=== PATIENT | female | born 1955 | race Caucasian/White ===

== ENCOUNTER 2024-04-30 14:33 | Observation (INO) | payer MEDICARE ==
[~2024-04-30] VITALS: Ht 172.7 cm; Wt 140.4 kg
[2024-04-30] MEDS ORDERED: ASPIRIN 81 MG/TAB PO ONE (14:45)
[2024-04-30] MEDS ORDERED: NITROGLYCERIN 0.4 MG/TAB SL ONE (14:45)
--- NOTE | 2024-04-30 14:50 | NUR ---
PT TO ROOM 1 IN NO DISTRESS.
[2024-04-30 15:05] LABS: BASO% 0.3 % (0-3); EOS% 1.6 % (0-8); HEMATOCRIT 46.7 % (37.0-47.0); HEMOGLOBIN 15.2 g/dl (12.0-16.0); IMMATURE GRANULOCYTES 0.3 % (0.0-5.0); LYMPH% 38.8 % (15-41); MEAN CORPUSCULAR HGB 29.6 pG CALC (26.0-32.0); MEAN CORPUSCULAR HGB CONC 32.5 g/dL CAL (32.0-36.0); MONO% 14.9 % (2-13); NEUT# 2.99 thou/uL (2.00-7.15); NEUT% 44.1 % (42-76); RED BLOOD COUNT 5.13 mill/uL (4.20-5.60); RED CELL DISTRI WIDTH 15.5 % (11.5-15.5)
[2024-04-30 15:19] LABS: ALBUMIN 4.3 g/dL (3.2-5.0); ALKALINE PHOSPHATASE 67 u/l (38-126); ANION GAP 12 (6-22 (CALC)); BILIRUBIN, TOTAL 0.7 mg/dL (0.02-1.3); BUN 13 mg/dL (8-23); BUN/CREATININE RATIO 16 (12-20 (CALC)); CARBON DIOXIDE 29 mmol/l (22-30); CHLORIDE 104 mmol/l (95-108); CREATININE 0.8 mg/dL (0.5-1.0); ESTIMATED GFR 80 ML/MIN (>=90 (CALC)); LIPASE 87 u/l (23-300); POTASSIUM 4.1 mmol/l (3.5-5.1); SGOT/AST 32 u/l (9-36); SODIUM 141 mmol/l (137-146); TOTAL PROTEIN 7.4 g/dL (6.3-8.2)
--- NOTE | 2024-04-30 16:14 | NUR ---
AMBULATING TO BATHROOM WITH STEADY GAIT, URINE SPECIMEN RECEIVED. BACK TO ROOM
[2024-04-30 16:23] LABS: URINE BILIRUBIN - DIPSTICK Negative (NEGATIVE); URINE BLOOD DIPSTICK Small (NEGATIVE); URINE GLUCOSE - DIPSTICK Negative (NEGATIVE); URINE KETONE Negative (NEGATIVE); URINE LEUK ESTERASE Negative (NEGATIVE); URINE NITRITE - DIPSTICK Negative (Negative); URINE PH 5.5 (4.5-8.0); URINE PROTEIN - DIPSTICK Negative (NEG-TRACE); URINE SPECIFIC GRAVITY 1.015; URINE UROBILINOGEN - DIPSTICK 0.2 E.U./dL (0.2)
[2024-04-30 16:24] LABS: URINE COLOR Yellow
[2024-04-30 16:31] LABS: URINE BACTERIA FEW hpf; URINE SQUAMOUS EPITHELIAL CELL FEW EPI/hpf (0-FEW)
--- NOTE | 2024-04-30 18:26 | NUR ---
D/C instructions given with verbalization of understanding. Pt. discharged home in stable condition.
[2024-04-30] MEDS ORDERED: LEVOTHYROXIN125 MCG PO (18:54)
[2024-04-30] MEDS ORDERED: COZAAR25 MG PO (18:55)
--- NOTE | 2024-04-30 18:57 | NUR ---
REPORT RECEIVED FROM GUSTABO VILLANUEVA AND RUDY GODINEZ AT THIS TIME. CARE RESUMED BY THIS NURSE FOR TRANSPORT TO MED SURG. PREVIOUS SHIFT CALLED REPORT TO MED SURG.
[2024-04-30] MEDS ORDERED: NEXIUM40 M1 PO (18:58)
--- NOTE | 2024-04-30 19:05 | NUR ---
REPORT GIVEN TO GUSTABO CASTORENA ON MED SURG AND PT TO BE TRANSPORTED TO MED SURG RM 280. CALL LIGHT WITHIN REACH AND PT HAS NO NEEDS OR CONCERNS.
[2024-04-30 19:46] VITALS: BP 172/80
[2024-04-30] MEDS ORDERED: MAGNESIUM HYDROXIDE 30 ML UDC PO PRN (19:55)
[2024-04-30] MEDS ORDERED: ACETAMINOPHEN 325 MG/TAB PO PRN (19:55)
[2024-04-30] MEDS ORDERED: Zaleplon 5 MG/CAP PO PRN (19:55)
--- NOTE | 2024-04-30 20:45 | NUR ---
patient arrived from the ED. Received report from [facility]. arrived from wheelchair to bed. able to ambulate within the room.
--- NOTE | 2024-04-30 20:45 | NUR ---
Admission Note Report Given to: GUSTABO CASTORENA Transported by: X Wheelchair Stretcher Transported with: X Nurse Transporter X Patent IV O2 X Debt Recovery Officer Location: ICU X [facility]
[2024-04-30] MEDS ORDERED: ENOXAPARIN SODIUM 40 MG/0.4 ML SYR SC SCH (21:00)
[2024-04-30 21:28] VITALS: BP 172/80
[2024-04-30 23:06] VITALS: BP 168/83
[2024-05-01 03:41] VITALS: BP 138/74
[2024-05-01 06:32] LABS: CHOLESTEROL HDL RATIO 2.9 (<4.4 (CALC)); MAGNESIUM 1.9 mg/dL (1.6-2.3)
[2024-05-01 07:36] VITALS: BP 168/79
--- NOTE | 2024-05-01 10:17 | NUR ---
PT IS ALERT TIMES 4 AND CAN MAKE HER NEEDS KNOWN. PT WAS OBSERVED DURING 8AM SAFETY ROUNDS IN [facility] RESTING. PT WAS WOKEN BY NURSING STAFF FOR BREAKFAST. OT HAS NO C/O PAIN AT THIS TIME. PT CALL HUNTER IS AT REACH. PT WAS SEEN BY [facility] LIGHT AND CATERPILLAR OPERATOR AND NEW ORDER INPLACE TO BE DISCHARGE HOME ON THIS SHIFT. ALL SAFETY MEASURES IN PLACE. NURSING WILL CONTINUE TO MONITOR.
--- NOTE | 2024-05-01 13:36 | NUR ---
PT REMAINS ALERT TIMES 4. PT HAS C/O CHAEST PAIN ON THIS SHIFT. DURING 12 NOON SAFETY ROUNDS PT WAS OBSERVED SITTING UP IN BED WATCHING TV AND EATING HER LUNCH. PT HAS NEW ORDERS TO BE DISCHARGED ON THIS SHIFT. PT CALL HUNTER WITH-IN REACH NURSING WILL CONTINUE TO MONITOR.
== END 2024-05-01 14:55 | disposition home or self-care (01) ==
LOC: ED 14:33 → ED-I 17:59 → ED 18:10 → MS2 18:11
PROVIDERS: Nurse Practitioner; ADMIT Internal Medicine; ATTEND Internal Medicine
DX: R07.9 Chest pain, unspecified (principal); I10 Essential (primary) hypertension; E03.9 Hypothyroidism, unspecified; K21.9 Gastro-esophageal reflux disease without esophagitis; E66.01 Morbid (severe) obesity due to excess calories
CPT/HCPCS: G0378; J1650